=== PATIENT | female | born 1990 | race Caucasian/White ===

== ENCOUNTER 2021-01-06 19:17 | Emergency (ER) | payer OTHER ==
[~2021-01-06] VITALS: Ht 175.3 cm; Wt 81.8 kg
--- NOTE | 2021-01-06 19:39 | PHYS DOC ---
General Adult EDM: Chief Complaint: NAUSEA/VOMITING/DIARRHEA HPI: HPI: Patient is a 30-year-old female who presents with nausea/vomiting/diarrhea that started at 11 AM today. Patient does report crampy pain when she is going to vomit. Patient reports having a syncopal episode earlier today. Patient states that she remembers everything, denies loss of consciousness or hitting her head. Patient denies any recent exposure. Review of Systems: Review of Systems: Constitutional: Denies fever or chills Eyes: Denies change in visual acuity HENT: Denies nasal congestion or sore throat Respiratory: Denies cough or shortness of breath Cardiovascular: Denies chest pain or edema GI: Denies abdominal pain, reports nausea vomiting and diarrhea : Denies dysuria Musculoskeletal: Denies back pain or joint pain Integument: Denies rash Neurologic: Denies headache, focal weakness or sensory changes Endocrine: Denies polyuria or polydipsia Lymphatic: Denies swollen glands Psychiatric: Denies depression or anxiety Physical Exam: PE: Constitutional: Well developed, well nourished, no acute distress, non-toxic appearance. [] HENT: Normocephalic, atraumatic, bilateral external ears normal, oropharynx moist, no oral exudates, nose normal. [] Eyes: PERRLA, EOMI, conjunctiva normal, no discharge. [] Neck: Normal range of motion, no tenderness, supple, no stridor. [] Cardiovascular:Heart rate regular rhythm, no murmur [] Lungs & Thorax: Bilateral breath sounds clear to auscultation [] Abdomen: Bowel sounds normal, soft, no tenderness, no masses, no pulsatile masses. [] Skin: Warm, dry, no erythema, no rash. [] Back: No tenderness, no CVA tenderness. [] Extremities: No tenderness, no cyanosis, no clubbing, ROM intact, no edema. [] Neurologic: Alert and oriented X 3, normal motor function, normal sensory function, no focal deficits noted. [] Psychologic: Affect normal, judgement normal, mood normal. [] EKG: EKG: Sinus Rhythm, Normal EKG. Intervals normal. [place] Normal. HR 95 BPM[] Radiology/Procedures: Radiology/Procedures: []XR CHEST 1V Clinical Indication: Reason: syncope / Comparison: None. Findings: The cardiomediastinal silhouette is normal. Apparent increased density in the lung bases is probably due to overlying soft tissues. Lungs are clear. There is no pneumothorax. No pleural effusion is appreciated. No acute bone abnormality. IMPRESSION: No acute cardiopulmonary process. Electronically signed by: Isaiah Grove MD (01/06/2021 8:39 PM) [facility] Heart Score: Risk Factors: Risk Factors: DM, Current or recent (<one month) smoker, HTN, HLP, family history of CAD, obesity. Risk Scores: Score 0 - 3: 2.5% MACE over next 6 weeks - Discharge Home Score 4 - 6: 20.3% MACE over next 6 weeks - Admit for Clinical Observation Score 7 - 10: 72.7% MACE over next 6 weeks - Early Invasive Strategies Course & Med Decision Making: Course & Med Decision Making Pertinent Labs and Imaging studies reviewed. (See chart for details) []Patient is a 19-year-old female who presents with lower right abdominal pain. Patient was seen here on Wednesday and discharged with constipation. Patient has been on a liquid only diet for 48 hours. Patient states that she goes between constipation and diarrhea. Patient has an appointment Wednesday with Dr. Richards. Mom states that she is also lactose intolerant. And has a history of IBS. Mom states "I was just worried since she started having sharp abdominal pain". Patient denies taking anything at home for pain. Rating pain 3/10. Patient denies nausea or cramping. Patient states "I feel so much better and ready to go home". Patient's being sent home with Zofran and Bentyl. Patient instructed return to the emergency room with worsening symptoms or concerns. Patient is hemodynamically stable and able to ambulate on her own. Patient also able to keep down water. Patient most likely has gastroenteritis. Dragon Disclaimer: Dragon Disclaimer: This electronic medical record was generated, in whole or in part, using a voice recognition dictation system. Departure Departure: Impression: Primary Impression: Nausea vomiting and diarrhea Disposition: 01 DC HOME SELF CARE/HOMELESS Condition: GOOD Referrals: PCP,UNKNOWN (PCP) Patient Instructions: Viral Gastroenteritis, [id number] Additional Instructions: You were seen in the emergency room for nausea/vomiting/diarrhea. You were given Zofran and Bentyl in the emergency room and your symptoms improved. I am going to send you home with both prescriptions for nausea and cramping. Please return to emergency room with worsening symptoms or concerns. EMERGENCY DEPARTMENT GENERAL DISCHARGE INSTRUCTIONS Thank you for coming to [facility] (ED) today and trusting us with you care. We trust that you had a positivie experience in our Emergency Department. If you wish to speak to the department management, you may call the director at [phone]. YOUR FOLLOW UP INSTRUCTIONS ARE FOLLOWS: 1. Do you have a private Doctor? If you do not have a private doctor, please ask for a resource list of physicians or clinics that may be able to assist you with follow up care. 2. The Emergency Physician has interpreted your x-rays. The X-Ray specialist will also review them. If there is a change in the findings, you will be notified in 48 hours when at all possible. 3. A lab test or culture has been done, your results will be reviewed and you will be notified if you need a change in treatment. ADDITIONAL INSTRUCTIONS AND INFORMATION: 1. Your care today has been supervised by a physician who is specially trained in emergency care. Many problems require more than one evaluation for a complete diagnosis and treatment. We recommend that you schedule your follow up appointment as recommended to ensure complete treatment of you illness or injury. If you are unable to obtain follow up care and continue to have a problem, or if your condition worsens, we recommend that you return to the ED. 2. We are not able to safely determine your condition over the phone nor are we able to give sound medical advice over the phone. For these safety reasons, if you call for medical advice we will ask you to come to the ED for further evaluation. 3. If you have any questions regarding these discharge instructions please call the ED at [phone]. SAFETY INFORMATION: In the interest of safety, wellness, and injury prevention; we encourage you to wear your sealbelt, if you smoke; quite smoking, and we encourage family to use a protective helmet for bicycling and other sporting events that present an increased risk for head injury. IF YOUR SYMPTOMS WORSEN OR NEW SYMPTOMS DEVELOP, OR YOU HAVE CONCERNS ABOUT YOUR CONDITION; OR IF YOUR CONDITION WORSENS WHILE YOU ARE WAITING FOR YOUR FOLLOW UP APPOINTMENT; EITHER CONTACT YOUR PRIMARY CARE DOCTOR, THE PHYSICIAN WHOSE NAME AND NUMBER YOU WERE GIVEN, OR RETURN TO THE ED IMMEDIATELY. Scripts Dicyclomine Hcl (DICYCLOMINE HCL) 10 Mg Capsule 10 MG PO Q6HRS for cramping for 5 Days, #20 CAP Prov: DONOVAN RAI DISTILLERY WORKER 01/06/21 Ondansetron Hcl (ZOFRAN) 4 Mg Tablet 4 MG PO TID PRN PRN for NAUSEA, #9 TAB Prov: DONOVAN RAI DISTILLERY WORKER 01/06/21 DONOVAN RAI APRN Jan 06, 2021 19:39
[2021-01-06] MEDS ORDERED: DICYCLOMINE 20 MG/2 ML VIAL. IM ONE (19:45)
[2021-01-06] MEDS ORDERED: PROCHLORPERAZINE 10 MG/2 ML VIAL. IV ONE (19:45)
--- NOTE | 2021-01-06 20:17 | EKG ---
[facility] ED [facility] [place] [id number] Test Date: 2021-01-06 Test Time: 19:35:22 Pat Name: DEYSI FRANKEL Department: Room: Gender: F Peripheral Vascular Tech: : [id number] Requested By: DONOVAN RAI Order Number: [id number] Reading MD: Geoff Lowe MD Measurements Intervals Dawn Rate: 95 P: 0 VT: 190 QRS: 74 QRSD: 68 T: 45 QT: 336 QTc: 425 Interpretive Statements SINUS RHYTHM Electronically Signed On 01-07-2021 10:30:42 DIRECTOR OF AUDIOLOGY by Geoff Lowe MD
[2021-01-06 20:29] LABS: BASO % 0 % (0-3); EOS # 0.1 x10^3/uL (0.0-0.7); EOS % 1 % (0-3); HEMATOCRIT 42.3 % (36.0-47.0); HEMOGLOBIN 14.4 g/dL (12.0-15.5); LYMPH # 0.4 x10^3/uL (1.0-4.8); LYMPH % 4 % (24-48); MEAN CORPUSCULAR HEMOGLOBIN 32 pg (25-35); MEAN CORPUSCULAR HGB CONC 34 g/dL (31-37); MEAN CORPUSCULAR VOLUME 94 fL (79-100); MONO # 0.3 x10^3/uL (0.0-1.1); MONO % 3 % (0-9); NEUT # 9.3 x10^3uL (1.8-7.7); NEUT % 92 % (31-73); PLATELET COUNT 365 x10^3/uL (140-400); RED BLOOD COUNT 4.49 x10^6/uL (3.50-5.40); RED CELL DISTRIBUTION WIDTH 12.6 % (11.5-14.5); WHITE BLOOD COUNT 10.2 x10^3/uL (4.0-11.0)
[2021-01-06 20:32] LABS: CALCIUM 8.4 mg/dL (8.5-10.1); CREATININE 0.8 mg/dL (0.6-1.0); GFR 85.4; POTASSIUM 3.7 mmol/L (3.5-5.1)
[2021-01-06 20:35] LABS: BARBITURATES NEG (NEG); BENZODIAZEPINES NEG (NEG); CANNABINOIDS NEG (NEG); COCAINE NEG (NEG); METHADONE NEG (NEG); OPIATES NEG (NEG); PHENCYCLIDINE NEG (NEG)
[2021-01-06 20:37] LABS: AMPHETAMINE/METHAMPHETAMINE NEG (NEG); COLOR,URINE YELLOW
[2021-01-06 20:38] LABS: BACTERIA,URINE FEW /HPF (0-FEW); BILIRUBIN,URINE NEG (NEG); CLARITY,URINE TURBID; GLUCOSE,URINE NEG (NEG); NITRITE,URINE NEG (NEG); RBC,URINE >40 /HPF (0-2); SQUAMOUS EPITHELIAL CELL,UR FEW /LPF; UROBILINOGEN,URINE 0.2 mg/dL (0.2 mg/dL); WBC,URINE OCC /HPF (0-4)
[2021-01-06 20:39] LABS: ALBUMIN 3.9 g/dL (3.4-5.0); ALBUMIN/GLOBULIN RATIO 1.1 (1.0-1.7); TOTAL BILIRUBIN 1.2 mg/dL (0.2-1.0); TOTAL PROTEIN 7.6 g/dL (6.4-8.2)
--- NOTE | 2021-01-06 20:41 | RAD ---
XR CHEST 1V Clinical Indication: Reason: syncope / Comparison: None. Findings: The cardiomediastinal silhouette is normal. Apparent increased density in the lung bases is probably due to overlying soft tissues. Lungs are clear. There is no pneumothorax. No pleural effusion is appr eciated. No acute bone abnormality. IMPRESSION: No acute cardiopulmonary process. Electronically signed by: Isaiah Grove MD (01/06/2021 8:39 PM) [facility] [place]ONDesiree
[2021-01-06] MEDS ORDERED: ONDA4TAB7 PO (21:15)
[2021-01-06] MEDS ORDERED: DICY10CA3 PO (21:15)
[2021-01-06 21:24] VITALS: BP 100/56
== END 2021-01-06 21:25 | disposition home or self-care (01) ==
LOC: ER 19:17
DX: R11.2 Nausea with vomiting, unspecified (principal); R19.7 Diarrhea, unspecified
CPT/HCPCS: 36415; 71045; 80053; 80307; 81001; 81025; 85025; 93005; 96372; 96374; 99285; J0500; J0780